=== PATIENT | male | born 1985 | race Caucasian/White ===

== ENCOUNTER 2017-04-05 17:47 | Emergency (ER) | payer SELFPAY ==
--- NOTE | 2017-04-05 18:56 | PDOC ---
Rapid Medical Evaluation Time Seen by Provider: 04/05/17 18:54 Medical Evaluation: 04/05/17 18:54 I have performed a brief in-person evaluation of this patient. The patient presents with a chief complaint of:R sided tooth pain since this morning Pertinent physical exam findings: N/A I have ordered the following: nothing The patient will proceed to the ED for further evaluation. Discharge Disposition - Diagnosis Pain, dental - Referrals - Patient Instructions - Post Discharge Activity
[2017-04-05 18:59] VITALS: BP 146/97; PULSE 72; TEMP 98.4; BMI 23.7
[2017-04-05] MEDS ORDERED: ACETAMINOPHEN WITH CODEINE 300MG/30MG TABLET PO ONE (19:14)
[2017-04-05] MEDS ORDERED: IBUPROFEN 400 MG TABLET (FP) PO ONE (19:14)
--- NOTE | 2017-04-05 19:24 | PDOC ---
History of Present Illness - General Chief Complaint: Pain Stated Complaint: PAIN Time Seen by Provider: 04/05/17 18:54 History Source: Patient Exam Limitations: No Limitations - History of Present Illness Initial Comments: 04/05/17 19:17 c/o dental pain left lower jaw, dental pain. pt recently had antibiotics , finished 3 days ago. Pt has continued pain. no fever, pt is able to open jaw fully. Past History - Past Medical History Allergies/Adverse Reactions: Allergies Allergy/AdvReac Type Severity Reaction Status Date / Time No Known Allergies Allergy Verified 04/05/17 18:55 Home Medications: Ambulatory Orders Acetaminophen W/ Codeine #3 [Tylenol # 3 -] 1 tab PO Q6H PRN #12 tablet MDD 8 tabs 04/05/17 Acetaminophen [Tylenol] 650 mg PO ASDIR 04/05/17 Ibuprofen 800 mg PO TID PRN #30 tablet 04/05/17 - Suicide/Smoking/Psychosocial Hx Smoking History: Never smoked Have you smoked in the past 12 months: No Information on smoking cessation initiated: No Hx Alcohol Use: No Drug/Substance Use Hx: No *Physical Exam - Vital Signs Last Vital Signs Temp Pulse Resp BP Pulse Ox 98.4 F 72 18 146/97 97 04/05/17 18:55 04/05/17 18:55 04/05/17 18:55 04/05/17 18:55 04/05/17 18:55 - Physical Exam General Appearance: Yes: Nourished, Appropriately Dressed HEENT: positive: EOMI, SUNITA, Other (multiple missing cracked teeth, multiple carries , no abscess ) Neck: positive: Supple. negative: Lymphadenopathy (R), Lymphadenopathy (L) Respiratory/Chest: positive: Lungs Clear, Normal Breath Sounds Cardiovascular: positive: Regular Rhythm, Regular Rate Extremity: positive: Normal Capillary Refill, Normal Inspection Integumentary: positive: Normal Color, Dry, Warm Neurologic: positive: Fully Oriented, Alert, Normal Mood/Affect, Normal Response , Motor Strength 5/5 *DC/Admit/Observation/Transfer Diagnosis at time of Disposition: Pain, dental - Prescriptions Prescriptions: Acetaminophen W/ Codeine #3 [Tylenol # 3 -] 1 tab PO Q6H PRN #12 tablet MDD 8 tabs PRN Reason: Severe Pain Ibuprofen 800 mg PO TID PRN #30 tablet PRN Reason: Severe Pain - Referrals Referrals: [facility] [Outside] - Patient Instructions Additional Instructions: follow with dental sooner than later gargle with warm salt water take the medication as directed for pain - Post Discharge Activity
== END 2017-04-05 19:42 | disposition home or self-care (01) ==
LOC: JERFT 17:47
DX: K08.89 Other specified disorders of teeth and supporting structures (principal)
CPT/HCPCS: 99281-25